=== PATIENT | male | born 1985 | race Caucasian/White ===

== ENCOUNTER 2024-03-26 08:30 | Outpatient (CLI) | payer BC, SELFPAY ==
--- NOTE | ~2024-03-26 | MR_ITS ---
EXAMINATION: MR brain/brain stem wo/w con DATE: 03/26/2024 09:45 INDICATION: Increased prolactin levels TECHNIQUE: Magnetic resonance imaging (MRI) of the brain and brainstem was performed without and with 15 mL Multihance intravenous contrast. Whole-brain sequences included sagittal T1-weighted FSE, axia l diffusion-weighted FS EPI, axial T2*-weighted GRE, axial T2-weighted FLAIR Propeller, and axial T2- weighted Propeller. Small [id number] sequences included sagittal and coronal T1-weighted FSE cente red at the pituitary. Postcontrast sequences included small [id number] coronal T1-weighted FSE in a time course and sagittal T1-weighted FSE and whole-brain axial T1-weighted FSE. Apparent diffusion coefficient (ADC) maps were created. COMPARISON: None. FINDINGS: There are no areas of restricted diffusion to suggest acute infarction. No intracranial hemorrhage. T here is a 1.4 x 1.0 x 1.1 cm mass at the right side of the sella which displaces the slightly more T1 hyperintense and earlier enhancing pituitary to the left and posterior aspect of the sella with loulou esponding leftward deviation of the pituitary stalk. The mass has a convex cephalad margin which is e levated slightly relative to the left side of the pituitary but which does not project significantly above the sella with fluid suprasellar cistern the mass from the overlying optic chiasm. T he mass does appear to extend along the right internal carotid artery at the cavernous sinuses extend s to the 12:00 position superiorly and slightly beyond the 6:00 to the 7:00 position of the inferior margin of the right internal carotid artery. There are no intraparenchymal signal abnormalities seen on the other pulse sequences. The ventricles are symmetric and normal in size. There are no abnormal extra-axial fluid collections. Flow voids are seen in the cerebral arteries on the T2-weighted sequen grace consistent with their expected patency. Visualized orbits and soft tissues are unremarkable. Ther e is mild mucosal thickening in the bilateral ethmoid sinuses. No other abnormally enhancing lesions identified. IMPRESSION: 1. 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 Otherwise unremarkable brain MRI. Reviewed, dictated and finalized at location A. IMPRESSION: 1. 14 x 10 x 11 mm mass at the right side of the sella displacing the pituitary and pituitary stalk to the left most likely representing a pituitary macroaden bryce. Otherwise unremarkable brain MRI.
== END 2024-03-26 08:31 ==
LOC: MICIMG 08:31
PROVIDERS: PCP Family Medicine; Visit Provider Student in an Organized Health Care Education/Training Program
DX: R79.89 Other specified abnormal findings of blood chemistry (principal); E23.7 Disorder of pituitary gland, unspecified
CPT/HCPCS: 70553; A9577

== ENCOUNTER 2024-03-26 08:42 | Outpatient (CLI) | payer BC, SELFPAY ==
--- NOTE | ~2024-03-26 | MR_ITS ---
EXAMINATION: MR knee LT wo con DATE: 03/26/2024 09:19 INDICATION: Internal derangement of L knee TECHNIQUE: Magnetic resonance imaging (MRI) of the left knee was performed without intravenous contra st. Sequences included axial PD-weighted FS FSE, coronal PD-weighted FSE and PD-weighted FS FSE, sagi ttal PD-weighted FSE, and sagittal T2-weighted FS FSE. COMPARISON: None. FINDINGS: Medial compartment: Complex tear of the meniscal body extending into the posterior horn, with undersurface and apical com ponents and displacement of a meniscal flap medially. Moderate diffuse cartilage thinning. Lateral compartment: Meniscus intact. Mild diffuse cartilage thinning. Patellofemoral compartment: Cartilage and retinacula intact. Ligaments and tendons: The ACL, PCL, MCL, and LCL are intact. Remaining flexor and extensor tendons are intact. Fluid: Small volume joint fluid. Moderate-sized Giordano's cyst. Osseous/other: No suspicious focal or diffuse marrow signal. IMPRESSION: Complex tear of the body and posterior horn of the medial meniscus, with a medially displaced menisca l flap. Small volume joint effusion. Reviewed, dictated and finalized at location K. IMPRESSION: Complex tear of the body and posterior horn of the medial meniscus, with a medi ally displaced meniscal flap. Small volume joint effusion.
== END 2024-03-26 08:43 ==
PROVIDERS: PCP Family Medicine; Visit Provider Family Medicine Sports Medicine
DX: M23.322 Other meniscus derangements, posterior horn of medial meniscus, left knee (principal); S83.232A Complex tear of medial meniscus, current injury, left knee, initial encounter; M25.462 Effusion, left knee; X58.XXXA Exposure to other specified factors, initial encounter
CPT/HCPCS: 73721